=== PATIENT | male | born 1965 | race Two or more races ===

== ENCOUNTER 2025-01-28 09:49 | Emergency (ER) | payer SELFPAY ==
[~2025-01-28] VITALS: Ht 177.8 cm; Wt 60.4 kg
[2025-01-28 10:55] VITALS: BP 154/55; PULSE 73; RESP 20; TEMP 98.1; O2SAT 98
--- NOTE | 2025-01-28 12:04 | ED.PDOC ---
History of Present Illness HPI Comments 59 year male presents for medication refill Chief Complaint: Medical Clearance Time Seen by MD: 10:35 Reviewed Notes: Nurses Notes, Medications, Allergies Allergies: Coded Allergies: Penicillins (Verified Allergy, Unknown, 01/28/25) Information Source: Patient Mode of Arrival: Ambulatory All Other Systems: Reviewed and Negative (per hpi) Physical Exam General Appearance: No Apparent Distress, Normal HEENT: Normal ENT Inspection, Pharynx Normal, TMs Normal Neck: Full Range of Motion, Non-Tender, Normal, Normal Inspection Respiratory: Chest Non-Tender, Lungs Clear, No Accessory Muscle Use, No Respiratory Distress, Normal Breath Sounds Cardiovascular: No Edema, No JVD, No Murmur, No Gallop, Normal Peripheral Pulses, Regular Rate/Rhythm Breast Exam: Deferred Gastrointestinal: No Organomegaly, Non Tender, No Pulsatile Mass, Normal Bowel Sounds, Soft Genitalia: Deferred Pelvic: Deferred Rectal: Deferred Extremities: No calf tenderness, Normal capillary refill, Normal inspection, Normal range of motion, Non-tender, No pedal edema Musculoskeletal : Apperance: Normal Neurologic: Alert, 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 Was a procedure done?: No Differential Dx Considerations may include: med refill X-Ray, Labs, Meds, VS Vital Signs Date Time Temp Pulse Resp B/P (MAP) Pulse Ox O2 Delivery O2 Flow Rate FiO2 01/28/25 10:55 98.1 73 20 154/55 (88) 98 98.1 01/28/25 10:05 73 20 01/28/25 10:00 98.1 73 20 154/55 (88) 98 X-Ray, Labs, Meds, VS Comment Spoke with pharmacy at [phone] spoke with no [place] [facility] pharmacist states that Dr. Lancaster is the prescriber on the [facility] last filled on 10/21/2024 one tablet by mouth every day however Dr. Salas's not want to feel the medication per pharmacy because the patient will not come in to be seen by him and we will not give his insurance coverage information. Pharmacist states Dr. Giordano does not want to give the medication to the patient anymore for noncompliance. Time of 1ST Reevaluation: 12:00 Reevaluation 1ST: Improved Patient Education/Counseling: Diagnosis, Treatment Family Education/Counseling: Diagnosis, Treatment Departure 1 Departure Time of Disposition: 12:03 Impression: Primary Impression: Medication refill Disposition: 01 HOME / SELF CARE / HOMELESS Condition: Stable Critical Care Note Critical Care Time?: No Stability Stability form required: No Heart Score Heart Score: Heart Score Response (Comments) Value History N/A 0 EKG N/A 0 Age N/A 0 Risk Factors N/A 0 Troponin N/A 0 Total 0 PAXTON SANDOVAL NP Jan 28, 2025 12:04
== END 2025-01-28 12:05 | disposition home or self-care (01) ==
LOC: ER 09:49
DX: Z76.0 Encounter for issue of repeat prescription (principal); Z88.0 Allergy status to penicillin